=== PATIENT | male | born 1995 | race Caucasian/White ===

== ENCOUNTER 2022-03-16 21:00 | Emergency (ER) | payer OTHER ==
[2022-03-16 22:30] LABS: BILIRUBIN NEGATIVE (NEGATIVE); BLOOD NEGATIVE Ery/uL (NEGATIVE); CLARITY CLEAR (CLEAR); COLOR YELLOW (YELLOW); GLUCOSE (U) NORMAL (NORMAL); LEUKOCYTES NEGATIVE Leu/uL (NEGATIVE); NITRITE NEGATIVE (NEGATIVE); PROTEIN NEGATIVE (NEGATIVE); SPECIFIC GRAVITY <=1.005 (1.001-1.030); UROBILINOGEN 0.2 mg/dL (0.2-1.0)
== END 2022-03-16 23:00 | disposition home or self-care (01) ==
LOC: FER 21:00
PROVIDERS: Emergency Medicine
DX: N48.1 Balanitis (principal)
CPT/HCPCS: 81003; 99283